=== PATIENT | female | born 1995 | race Caucasian/White ===

== ENCOUNTER 2017-03-19 21:02 | Emergency (ER) | payer BC ==
[2017-03-19 21:18] VITALS: PULSE 72; O2SAT 98
[2017-03-19] MEDS ORDERED: Sodium Chloride 0.9% 1000 ML 1,000 ML IV STA (21:20)
--- NOTE | 2017-03-19 21:27 | ERPHSYRPT ---
- History of Present Illness Time Seen by Provider: 03/19/17 21:21 Historian: patient Physician History: 21-year-old white female with history of diabetes arrives with complaints of vomiting several times a day she states she vomited 4-5 times today. She states she's had intermittent fevers she's got a rash on her right forearm. All symptoms going on for 5 days. Patient's had an occasional headache. Patient's mother states that a friend with similar symptoms had visited the patient but her symptoms had resolved. Past medical history includes diabetes. Past surgical history is negative. Social history patient denies tobacco alcohol or illicit drug use Timing/Duration: day(s) (4-5 days) Activities at Onset: none Quality: other (no real pain just vomiting) Abdominal Pain Onset Location: other (myalgias) Pain Radiation: no radiation Severity of Pain-Max: mild Severity of Pain-Current: mild Modifying Factors: Improves With: vomiting. Worsens With: analgesics, antacids , breathing, coughing, defecating, eating, exercise, lying down, movement, palpation, rest, urinating, position, walking Associated Symptoms: fever/chills, headache, nausea, vomiting, No back, No chest pain, No diaphoresis, No diarrhea, No fatigue, No heartburn, No loss of appetite, No neck pain, No rash, No shortness of breath, No syncope Previous symptoms: no prior history Allergies/Adverse Reactions: No Known Drug Allergies Allergy (Unverified 03/19/17 21:24) - Review of Systems Constitutional: Fever, Malaise, No Chills, No Fatigue, No Lethargy, No Night Sweats, No Weakness, No Weight Loss Eyes: No Symptoms, No Discharge, No Eye Pain, No Eye Redness, No Itchy, No Photophobia, No Tearing, No Vision Changes, No Double Vision, No Foreign Body Sensation Ears, Nose, & Throat: No Symptoms, No Ear Pain, No Ear Discharge, No Hearing Changes, No Tinnitus, No Nose Pain, No Nose Congestion, No Nose Discharge, No Sinus Drainage, No Epistaxis, No Mouth Pain, No Mouth Swelling, No Loose Teeth, No Throat Pain, No Throat Swelling, No Hoarse, No Painful Swallowing, No Snoring , No Stridor Respiratory: No Cough, No Dyspnea Cardiac: No Chest Pain, No Edema, No Syncope Abdominal/Gastrointestinal: Nausea, Vomiting, No Abdominal Pain, No Diarrhea, No Constipation, No Hematemesis, No Hematochezia, No Melena, No Dysphagia, No Appetite Changes Genitourinary Symptoms: No Dysuria Musculoskeletal: Myalgias, No Arthralgias, No Back Pain, No Neck Pain, No Deformity, No Fall, No Injury, No Joint Redness, No Joint Pain, No Joint Swelling Skin: No Rash Neurological: Headache (occasional headache), No Dizziness, No Focal Weakness, No Gait Changes, No Irritability, No Lethargy, No Paralysis, No Parasthesia, No Seizure, No Sensory Changes, No Speech Changes, No Tics, No Tremors, No Vertigo Psychological: No Symptoms Endocrine: No Symptoms All Other Systems: Reviewed and Negative - Past Medical History Pertinent Past Medical History: Yes Endocrine Medical History: Diabetes Type II - Past Surgical History Past Surgical History: Yes - Nursing Vital Signs Nursing Vital Signs: Initial Vital Signs Temperature 98.1 F Temperature Source Oral Pulse Rate 72 Respiratory Rate 16 Blood Pressure [Right Arm] 122/84 Pain Intensity 0 - Physical Exam General Appearance: no apparent distress, alert Eye Exam: PERRL/EOMI, eyes nml inspection Ears, Nose, Throat Exam: normal ENT inspection, pharynx normal, moist mucous membranes Neck Exam: normal inspection, non-tender, supple, full range of motion Respiratory Exam: normal breath sounds, lungs clear, No respiratory distress Cardiovascular Exam: regular rate/rhythm, normal heart sounds Gastrointestinal/Abdomen Exam: soft, No tenderness, No mass Back Exam: normal inspection, normal range of motion, No CVA tenderness, No vertebral tenderness Extremity Exam: normal inspection, normal range of motion, pelvis stable Neurologic Exam: alert, oriented x 3, cooperative, normal mood/affect, nml cerebellar function, sensation nml, No motor deficits Skin Exam: normal color, warm, dry, rash (slight erythematous rash sparse right anterior forearm) SpO2 Interpretation: normal (98%) SpO2: 98 Oxygen Delivery: Room Air Ordered Tests: Active Orders 24 hr Category Date Time Status Clean Catch Urine Specimen STAT Care 03/19/17 21:44 Active IV Insertion STAT Care 03/19/17 21:20 Active AMYLASE Stat Lab 03/19/17 21:45 Completed CBC W DIFF Stat Lab 03/19/17 21:45 Completed CMP Stat Lab 03/19/17 21:45 Completed CULTURE, THROAT Stat Lab 03/19/17 21:30 Received HCG QUALITATIVE,SERUM Stat Lab 03/19/17 21:45 Completed LIPASE Stat Lab 03/19/17 21:45 Completed Manual Differential NC Stat Lab 03/19/17 21:45 Completed STREP SCREEN-BETA A Stat Lab 03/19/17 21:30 Completed UA W/ MICROSCOPIC Stat Lab 03/19/17 21:15 Completed Medication Summary Discontinued Medications Generic Name Dose Route Start Last Admin Trade Name Piyush PRN Reason Stop Dose Admin Sodium Chloride 1,000 mls @ 999 mls/hr 03/19/17 21:20 03/19/17 21:36 Sodium Chloride 0.9% 1000 Ml IV 03/19/17 22:20 999 mls/hr .Q1H1M STA Administration Sodium Chloride Confirm 03/19/17 21:33 Sodium Chloride 0.9% 1000 Ml Administered 03/19/17 21:34 Dose 1,000 mls @ ud .ROUTE .STK-MED ONE Prochlorperazine Edisylate 10 mg 03/19/17 22:23 03/19/17 22:30 Compazine 10 Mg/2 Ml IV 03/19/17 22:24 Not Given STAT ONE Promethazine HCl 12.5 mg 03/19/17 22:23 03/19/17 22:30 Phenergan 25 Mg Inj IV 03/19/17 22:24 Not Given STAT ONE Promethazine HCl 25 mg 03/19/17 22:30 Phenergan 25 Mg Inj IM 03/19/17 22:31 STAT ONE Lab/Rad Data: Laboratory Result Diagrams 03/19/17 21:45 03/19/17 21:45 Laboratory Results 03/19/17 03/19/17 03/19/17 Range/Units 21:45 21:45 21:45 WBC 5.1 (4.0-10.5) K/mm3 RBC 4.05 L (4.1-5.4) M/mm3 Hgb 12.7 (12.0-16.0) gm/dl Hct 37.4 (35-47) % MCV 92.3 (78-100) fl MCH 31.3 (26-32) pg MCHC 34.0 (32-36) g/dl RDW 11.8 (11.5-14.0) % Plt Count 212 (150-450) K/mm3 MPV 11.3 H (6-9.5) fl Sodium 140 (136-145) mEq/L Potassium 3.7 (3.5-5.1) mEq/L Chloride 104 (98-107) mEq/L Carbon Dioxide 25.1 (21-32) mEq/L Anion Gap 14.7 (5-15) MEQ/L BUN 11 (9-20) mg/dL Creatinine 0.92 (0.55-1.30) mg/dl Estimated GFR > 60 ML/MIN Glucose 74 (70-110) MG/DL Calcium 9.1 (8.5-10.1) mg/dL Total Bilirubin 0.30 (0.2-1.0) mg/dL AST 15 (15-37) U/L ALT 12 (12-78) U/L Alkaline Phosphatase 65 (46-116) U/L Serum Total Protein 7.9 (6.4-8.2) gm/dL Albumin 3.4 (3.4-5.0) g/dL Amylase 61 (25-115) U/L Lipase 127 (73-393) U/L Serum , Qual NEGATIVE (Negative) Ur Collection Type Urine Color (YELLOW) Urine Appearance (CLEAR) Urine pH (5-6) Ur Specific [place] (1.005-1.025) Urine Protein (Negative) Urine Ketones (NEGATIVE) Urine Blood (0-5) Sean/ul Urine Nitrite (NEGATIVE) Urine Bilirubin (NEGATIVE) Urine Urobilinogen (0-1) mg/dL Ur Leukocyte Esterase (NEGATIVE) Urine Microscopic RBC (0-2) /HPF Ur Epithelial Cells (FEW) /HPF Urine Glucose (NEGATIVE) mg/dL Streptococcus Screen (Negative) Specimen Received 03/19/17 03/19/17 Range/Units 21:30 21:15 WBC (4.0-10.5) K/mm3 RBC (4.1-5.4) M/mm3 Hgb (12.0-16.0) gm/dl Hct (35-47) % MCV (78-100) fl MCH (26-32) pg MCHC (32-36) g/dl RDW (11.5-14.0) % Plt Count (150-450) K/mm3 MPV (6-9.5) fl Sodium (136-145) mEq/L Potassium (3.5-5.1) mEq/L Chloride (98-107) mEq/L Carbon Dioxide (21-32) mEq/L Anion Gap (5-15) MEQ/L BUN (9-20) mg/dL Creatinine (0.55-1.30) mg/dl Estimated GFR ML/MIN Glucose (70-110) MG/DL Calcium (8.5-10.1) mg/dL Total Bilirubin (0.2-1.0) mg/dL AST (15-37) U/L ALT (12-78) U/L Alkaline Phosphatase (46-116) U/L Serum Total Protein (6.4-8.2) gm/dL Albumin (3.4-5.0) g/dL Amylase (25-115) U/L Lipase (73-393) U/L Serum , Qual (Negative) Ur Collection Type CLEAN CATCH Urine Color STRAW (YELLOW) Urine Appearance SLIGHTLY CLOUDY (CLEAR) Urine pH 5.0 (5-6) Ur Specific [place] 1.020 (1.005-1.025) Urine Protein NEGATIVE (Negative) Urine Ketones MODERATE (NEGATIVE) Urine Blood 250 (0-5) Sean/ul Urine Nitrite NEGATIVE (NEGATIVE) Urine Bilirubin NEGATIVE (NEGATIVE) Urine Urobilinogen NORMAL (0-1) mg/dL Ur Leukocyte Esterase NEGATIVE (NEGATIVE) Urine Microscopic RBC 2-5 (0-2) /HPF Ur Epithelial Cells FEW (FEW) /HPF Urine Glucose NEGATIVE (NEGATIVE) mg/dL Streptococcus Screen NEGATIVE (Negative) Specimen Received 03/19/17:2010 - Progress Progress: improved Progress Note: 03/19/17 22:24 21-year-old white female arrives with complaint of nausea vomiting symptoms for 4-5 days. Patient's labs are all normal. Patient really does not appear to be in acute distress. After evaluation patient is asking "for something for my head". I've offered her Tylenol or Motrin she states "I've tried these. " Really don't feel like narcotics are indicated in this patient's case will give her Phenergan 25 mg IM. this should help with any nausea and should help with headache as well. the patient really not complaining of nausea or vomiting since she's been in the emergency room. Will plan to discharge will write for Phenergan 25 mg orally every 4-6 hours as needed for nausea vomiting . 03/19/17 22:29 - Departure Time of Disposition: 22:26 Departure Disposition: Home Clinical Impression: Viral syndrome Nausea and vomiting Qualifiers: Vomiting type: unspecified Vomiting Intractability: non-intractable Qualified Code(s): R11.2 - Nausea with vomiting, unspecified Condition: Fair Critical Care Time: No Referrals: ALEXANDRE ALANIS [Primary Care Provider] - Additional Instructions: Return home. Plenty of fluids. Phenergan 25 mg orally every 4-6 hours as needed for nausea, vomiting, or headache. Tylenol every 4 hours as needed for pain or temperature greater than 100.5. Motrin every 6 hours as needed for pain or temperature greater than 100.5. Follow-up with your family doctor if symptoms are worse, no better in 48 hours, or persist longer than one week. Return for acute distress or for severe symptoms. Prescriptions: Promethazine HCl 25 mg [Phenergan 25 mg] 25 mg PO Q4-6HPRN PRN #12 tablet PRN Reason: nausea, vomiting, headache
[2017-03-19] MEDS ORDERED: Sodium Chloride 0.9% 1000 ML 1,000 ML ONE (21:33)
[2017-03-19 21:38] LABS: ADD URINE CULTURE? NO (NO); Bilirubin NEGATIVE (NEGATIVE); Blood 250 Ery/ul (0-5); COMPLETE URINE MICROSCOPIC? YES; Collection Type CLEAN CATCH; Glucose NEGATIVE (NEGATIVE); Leukocyte Esterase NEGATIVE (NEGATIVE)
[2017-03-19 21:39] LABS: Epithelial Cells FEW /HPF (FEW)
[2017-03-19 21:50] LABS: Mean Cell Volume 92.3 fl (78-100); Mean Platelet Volume 11.3 fl (6-9.5); Platelet Count 212 K/mm3 (150-450); Red Blood Count 4.05 M/mm3 (4.1-5.4); Red Cell Distribution Width 11.8 % (11.5-14.0); White Blood Count 5.1 K/mm3 (4.0-10.5)
[2017-03-19 21:59] LABS: Mean Corpuscular Hemoglobin 31.3 pg (26-32)
[2017-03-19 22:18] LABS: ALBUMIN 3.4 g/dL (3.4-5.0); ALKALINE PHOSPHATASE 65 U/L (46-116); ANION GAP 14.7 MEQ/L (5-15); BLOOD UREA NITROGEN 11 mg/dL (9-20); CHLORIDE 104 mEq/L (98-107); Carbon Dioxide 25.1 mEq/L (21-32); Glucose 74 MG/DL (70-110); LIPASE 127 U/L (73-393); Potassium 3.7 mEq/L (3.5-5.1); SGOT/AST 15 U/L (15-37); SGPT/ALT 12 U/L (12-78); SODIUM 140 mEq/L (136-145); Total Protein 7.9 gm/dL (6.4-8.2)
[2017-03-19] MEDS ORDERED: Compazine 10 MG/2 ML IV ONE (22:23)
[2017-03-19] MEDS ORDERED: Phenergan 25 MG INJ IV ONE (22:23)
[2017-03-19] MEDS ORDERED: Phenergan 25 MG INJ IM ONE (22:30)
[2017-03-19] MEDS ORDERED: Phenergan 25 MG INJ ONE (22:32)
[2017-03-19 23:05] VITALS: BP 108/78
[2017-03-19 23:14] LABS: Platelet Estimate NORMAL (NORMAL); Total Cells Counted 100
== END 2017-03-19 23:05 | disposition home or self-care (01) ==
LOC: ED 21:02
DX: R11.2 Nausea with vomiting, unspecified (principal); B34.9 Viral infection, unspecified; E11.9 Type 2 diabetes mellitus without complications; R50.9 Fever, unspecified; R21 Rash and other nonspecific skin eruption; R51 Headache
CPT/HCPCS: 36000; 36415; 80053; 81000; 82150; 83690; 84703; 85025; 87070; 87430; 96360; 99284; J2550